=== PATIENT | male | born 1960 | race Caucasian/White ===

== ENCOUNTER 2017-06-15 18:29 | Emergency (ER) | payer OTHER ==
[~2017-06-15] VITALS: Ht 182.9 cm; Wt 82.6 kg
--- NOTE | 2017-06-15 18:41 | NUR ---
THE PATIENT WAS [facility] TO ER ETOH - NO ACUTE DISTRESS
--- NOTE | 2017-06-15 20:28 | NUR ---
pt sleeping in rtok, no signs of distress noted. will cont to monitor pt.
--- NOTE | 2017-06-15 22:05 | NUR ---
Dr Shen at bedside for re evaluation. Pt awake and alert. A/ox3 however still appears intoxicated. Food and drink provided.
[2017-06-15] MEDS ORDERED: IBUPROFEN 600 MG TABLET PO ONE (22:30)
[2017-06-16] MEDS ORDERED: IBUPROFEN 600 MG TABLET PO ONE (00:44)
[2017-06-16 00:50] VITALS: BP 125/71
--- NOTE | 2017-06-16 00:50 | NUR ---
PT OK TO DISCHARGE PER DR CAMPA. Patient discharged to home in stable condition. Written and verbal after care instructions given. Patient verbalizes understanding of instruction.Patient is awake and alert to self, day, and place. PT ambulatory with a steady gait
== END 2017-06-16 00:51 | disposition home or self-care (01) ==
LOC: ER 18:30
DX: S00.211A Abrasion of right eyelid and periocular area, initial encounter (principal); F17.200 Nicotine dependence, unspecified, uncomplicated; R56.9 Unspecified convulsions; Z71.6 Tobacco abuse counseling; W01.198A Fall on same level from slipping, tripping and stumbling with subsequent striking against other object, initial encounter; Y93.89 Activity, other specified; Y92.89 Other specified places as the place of occurrence of the external cause; Y99.9 Unspecified external cause status
CPT/HCPCS: 99283; 99406; A4606; Z7610

== ENCOUNTER 2017-11-15 14:02 | Emergency (ER) | payer OTHER ==
[~2017-11-15] VITALS: Ht 182.9 cm; Wt 77.1 kg
--- NOTE | 2017-11-15 14:18 | NUR ---
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 PT WAS TRIAGED AND TAKEN TO ROOM #14. URINE SAMPLE OBTAINED AND SENT TO LAB. PT IS AWAITING EVAL BY .
[2017-11-15 14:35] LABS: APPEARANCE,URINE Clear (CLEAR); BILIRUBIN,URINE Negative (NEGATIVE); BLOOD, URINE Negative Ery/uL (NEGATIVE); COLOR,URINE Light yellow (YELLOW); KETONES,URINE Negative (NEGATIVE); LEUKOCYTE ESTERASE ,URINE Negative (NEGATIVE); NITRITE, URINE Negative (NEGATIVE); PROTEIN,URINE Negative (NEGATIVE); UGLUCOSE Negative (NEGATIVE); UROBILINOGEN,URINE 0.2 EU/dL (0.2)
[2017-11-15 14:59] LABS: BASOPHILS # (AUTO) 0.1 /CMM (0.0-0.2); BASOPHILS % (AUTO) 0.8 % (0.0-2.0); EOSINOPHILS # (AUTO) 0.3 /CMM (0.0-0.7); HEMATOCRIT 40 % (39-51); HEMOGLOBIN 13.8 g/dL (13.5-17.5); LYMPHOCYTES # (AUTO) 2.8 /CMM (0.8-4.8); LYMPHOCYTES % (AUTO) 33.1 % (20.0-44.0); MEAN CORPUSCULAR HEMOGLOBIN 33 PG (26.0-33.0); MEAN CORPUSCULAR HGB CONC 35 g/dl (31.0-36.0); MEAN CORPUSCULAR VOLUME 94 fL (80-96); MONOCYTES # (AUTO) 0.4 /CMM (0.1-1.30); MONOCYTES % (AUTO) 4.5 % (2.0-12.0); NEUTROPHILS % (AUTO) 58.6 % (43.0-81.0); PLATELET COUNT (AUTO) 330 /CMM (150-450); RDW COEFFICIENT OF VARIATION 13.2 (11.5-15.0); RED BLOOD CELL COUNT(AUTO) 4.21 MIL/uL (4.5-6.0); WHITE BLOOD COUNT (AUTO) 8.6 K/uL (4.3-11.0)
--- NOTE | 2017-11-15 15:00 | NUR ---
CALLED FOR A REG DIET FOOD TRAY
--- NOTE | 2017-11-15 15:01 | NUR ---
[facility] IS AT THE BEDSIDE.
[2017-11-15 15:08] LABS: CALCIUM, SERUM 8.1 mg/dL (8.5-10.1); CARBON DIOXIDE 23 mmol/L (21-32); CHLORIDE 107 mmol/L (98-107); CREATININE 0.9 mg/dL (0.6-1.3); GLUCOSE 82 mg/dL (74-106); SODIUM SERUM 141 mmol/L (136-145); UREA NITROGEN, BLOOD 11 mg/dL (7-18)
[2017-11-15 15:14] LABS: ACETAMINOPHEN < 2 ug/ml (10-30); ALANINE AMINOTRANSFERASE 25 U/L (12-78); ALBUMIN 3.4 g/dL (3.4-5.0); ALCOHOL, BLOOD 250 mg/dL (0-0); ALKALINE PHOSPHATASE 92 U/L (46-116); ASPARTATE AMINOTRANSFERASE 22 U/L (15-37); BILIRUBIN,DIRECT 0.1 mg/dL (0.0-0.2); BILIRUBIN,TOTAL 0.2 mg/dL (0.2-1.0); SALICYLATE 5.9 mg/dL (2.8-20.0); TOTAL PROTEIN, SERUM 7.2 g/dL (6.4-8.2)
--- NOTE | 2017-11-15 15:22 | NUR ---
PT REC'D A MEAL TRAY AND IS TOLERATING PO WELL.
[2017-11-15] MEDS ORDERED: PHENYTOIN SODIUM IV 1,000 MG in IV NS 0.9% 100 ML IV ONE (16:00)
--- NOTE | 2017-11-15 16:20 | NUR ---
CALLED FOR 2ND MEAL TRAY. PT IS EATING AND APPEARS TO BE TOLERATING PO WELL. WILL CONTINUE TO MONITOR THE PT.
--- NOTE | 2017-11-15 16:35 | NUR ---
CALLED PHARMACY FOR ADRYAN
--- NOTE | 2017-11-15 17:23 | NUR ---
MILIND, DEVELOPMENT[employer] SERVICES WORK[employer] IS AT THE BEDSIDE.
--- NOTE | 2017-11-15 20:12 | NUR ---
CALLED SO RAPHAEL ESTRADA PATIENT IS READY FOR TRANSPORT NUMBER TO CALL FOR REPORT IS EXT [phone]
--- NOTE | 2017-11-15 20:17 | NUR ---
CALLED PATRICE FOR TRANSPORT ETA OF 893 WAS GIVEN. TRIP#[id number]
--- NOTE | 2017-11-15 21:30 | NUR ---
IV removed. Catheter intact and site benign. Pressure and 4x4 applied to site. No bleeding noted.Patient discharged to home in stable condition. Written and verbal after care instructions given. Patient verbalizes understanding of instruction. PT BEING TRANSFERRED TO [facility] VIA AMBULANCE. REPORT GIVEN TO ROOF BOLTER. REPORT TO [facility] GIVEN BY BALWINDER VAZ
[2017-11-15 21:34] VITALS: BP 112/65
== END 2017-11-15 21:40 | disposition home or self-care (01) ==
LOC: ER 14:04
DX: R45.851 Suicidal ideations (principal); F10.10 Alcohol abuse, uncomplicated; R79.1 Abnormal coagulation profile; F32.9 Major depressive disorder, single episode, unspecified; Z59.0 Homelessness; G40.909 Epilepsy, unspecified, not intractable, without status epilepticus; F17.200 Nicotine dependence, unspecified, uncomplicated
CPT/HCPCS: 36415; 80048; 80076; 80185; 80305; 80329; 81001; 85025; 96365; 99284; A4606; G0480 ×2; J1165; J7030; Z7610; 81000-TC

== ENCOUNTER 2017-12-07 15:28 | Emergency (ER) | payer OTHER ==
[~2017-12-07] VITALS: Ht 185.4 cm; Wt 79.4 kg
[2017-12-07 15:31] VITALS: BP 153/88
--- NOTE | 2017-12-07 15:40 | NUR ---
PATIENT IS NOT IN ED WAITING ROOM. PER ED SECURITY PATIENT WENT OUTSIDE TO SMOKE.
--- NOTE | 2017-12-07 16:10 | NUR ---
PATIENT IS NOT IN ED WAITING ROOM.
[2017-12-07 16:21] LABS: BASOPHILS # (AUTO) 0.1 /CMM (0.0-0.2); HEMATOCRIT 43 % (39-51); HEMOGLOBIN 14.5 g/dL (13.5-17.5); LYMPHOCYTES # (AUTO) 3.5 /CMM (0.8-4.8); LYMPHOCYTES % (AUTO) 38.4 % (20.0-44.0); MEAN CORPUSCULAR HGB CONC 34 g/dl (31.0-36.0); MEAN CORPUSCULAR VOLUME 95 fL (80-96); MONOCYTES # (AUTO) 0.6 /CMM (0.1-1.30); NEUTROPHILS # (AUTO) 4.7 /CMM (1.8-8.9); NEUTROPHILS % (AUTO) 50.6 % (43.0-81.0); PLATELET COUNT (AUTO) 370 /CMM (150-450); RDW COEFFICIENT OF VARIATION 13.9 (11.5-15.0); RED BLOOD CELL COUNT(AUTO) 4.46 MIL/uL (4.5-6.0); WHITE BLOOD COUNT (AUTO) 9.2 K/uL (4.3-11.0)
[2017-12-07 16:34] LABS: CALCIUM, SERUM 8.6 mg/dL (8.5-10.1); CARBON DIOXIDE 23 mmol/L (21-32); CHLORIDE 105 mmol/L (98-107); CREATININE 0.4 mg/dL (0.6-1.3); GLUCOSE 95 mg/dL (74-106); POTASSIUM 4.1 mmol/L (3.5-5.1); SODIUM SERUM 141 mmol/L (136-145); UREA NITROGEN, BLOOD 11 mg/dL (7-18)
[2017-12-07 16:39] LABS: ACETAMINOPHEN < 2 ug/ml (10-30); ALANINE AMINOTRANSFERASE 73 U/L (12-78); ALBUMIN 3.9 g/dL (3.4-5.0); ALCOHOL, BLOOD 291 mg/dL (0-0); ALKALINE PHOSPHATASE 92 U/L (46-116); ASPARTATE AMINOTRANSFERASE 53 U/L (15-37); BILIRUBIN,DIRECT 0.1 mg/dL (0.0-0.2); BILIRUBIN,TOTAL 0.2 mg/dL (0.2-1.0); SALICYLATE 6.6 mg/dL (2.8-20.0); TOTAL PROTEIN, SERUM 7.7 g/dL (6.4-8.2)
--- NOTE | 2017-12-07 16:40 | NUR ---
PATIENT IS NOT IN ED WAITING ROOM.
--- NOTE | 2017-12-07 17:09 | NUR ---
CALLED [employer], ETA 1 HR.
--- NOTE | 2017-12-07 18:09 | NUR ---
called; the patient is no longer at bedside; Patient left without being seen by ER Physician
== END 2017-12-07 18:12 | disposition left against medical advice (07) ==
LOC: ER 15:29
DX: F32.9 Major depressive disorder, single episode, unspecified (principal); G40.909 Epilepsy, unspecified, not intractable, without status epilepticus; F17.200 Nicotine dependence, unspecified, uncomplicated; Z60.2 Problems related to living alone
CPT/HCPCS: 36415; 80048-TC; 80076-TC; 85025-TC; A4606; G0480; Z7610